=== PATIENT | female | born 1955 | race Caucasian/White ===

== ENCOUNTER → 2022-11-17 07:16 | Outpatient (CLI) | payer BC, SELFPAY | PROVIDERS: PCP Student in an Organized Health Care Education/Training Program; Visit Provider Student in an Organized Health Care Education/Training Program | DX: R68.89 Other general symptoms and signs (principal) | CPT/HCPCS: 87635 ==

== ENCOUNTER 2023-10-02 10:24 | Outpatient (CLI) | payer BC, SELFPAY ==
[2023-10-02 18:26] LABS: Adenovirus,PCR Not Detected (NotDetected); Bordetella Pertussis Not Detected (NotDetected); Chlamydophila Pneumoniae, PCR Not Detected (NotDetected); Coronavirus 229E Not Detected (NotDetected); Coronavirus NL63 Not Detected (NotDetected); Coronavirus OC43 Not Detected (NotDetected); Coronovirus HKU1,PCR Not Detected (NotDetected); Human Metapneumovirus Not Detected (NotDetected); Influenza A, PCR Not Detected (NotDetected); Influenza AH1, 2009 Not Detected (NotDetected); Influenza AH1, PCR Not Detected (NotDetected); Influenza AH3,PCR Not Detected (NotDetected); Influenza B, PCR Not Detected (NotDetected); Mycoplasma Pneumoniae, PCR Not Detected (NotDetected); Parainfluenza 1, PCR Not Detected (NotDetected); Parainfluenza 2, PCR Not Detected (NotDetected); Parainfluenza 3, PCR Not Detected (NotDetected); Parainfluenza 4, PCR Not Detected (NotDetected); Respiratory Syncytial Virus Not Detected (NotDetected); Rhinovirus/Enterovirus Not Detected (NotDetected)
[2023-10-02 23:00] LABS: Coronavirus 19, PCR Detected (NotDetected)
== END 2023-10-02 23:59 | disposition home or self-care (01) ==
LOC: LAB.DROPOF 10-03 10:25
PROVIDERS: PCP Nurse Practitioner; Visit Provider Nurse Practitioner
DX: J06.9 Acute upper respiratory infection, unspecified (principal)
CPT/HCPCS: 87581; 87632; 87635; 87798

== ENCOUNTER 2024-06-24 19:17 | Outpatient (CLI) | payer MEDICARE, SELFPAY ==
[2024-06-24 19:43] LABS: Basophils # 0.1 K/mm3 (0-0.2); Basophils % 0.9 % (0.1-2.0); Eosinophils # 0.3 Kmm3 (0.0-0.4); Eosinophils % 4.1 % (0.1-12.0); Hemoglobin 13.4 g/dL (12.2-16.2); Lymphocytes # 2.8 K/mm3 (0.7-4.5); Lymphocytes % 42.4 % (10-50); Mean Corpuscular HGB Conc 31.9 g/dL (31.8-35.4); Mean Corpuscular Hemoglobin 30.2 pg (27.0-31.2); Mean Corpuscular Volume 94.8 fl (81-99); Mean Platelet Volume 10.7 fl (7.4-10.4); Monocytes # 0.6 K/mm3 (0.1-1.0); Monocytes % 9.3 % (1.7-9.3); Neutrophils # 2.8 K/mm3 (1.8-7.8); Neutrophils % 43.1 % (37.0-80.0); Nucleated Red Blood Cells # 0 10^3/uL; Nucleated Red Blood Cells % 0 %; Platelet Count 331 K/mm3 (142-424); Red Blood Count 4.43 M/mm3 (4.20-5.40); Red Cell Distribution Width 13.3 % (11.5-17.5); Red Cell Distribution Width-SD 46.8 fL; White Blood Count 6.6 K/mm3 (4.8-10.8)
[2024-06-24 21:19] LABS: Alanine Aminotransferase 24 U/L (12-78); Albumin Level 3.7 g/dl (3.5-5.0); Albumin/Globulin Ratio 1.4 (1.1-1.8); Alkaline Phosphatase 104 U/L (38-126); Aspartate Amino Transferase 28 U/L (14-36); Bilirubin,Total 0.5 mg/dl (0.2-1.3); Blood Urea Nitrogen 16 mg/dl (7-17); Calcium 8.9 mg/dl (8.4-10.2); Carbon Dioxide 27 mmol/L (22.0-30.0); Chloride 110 mmol/L (98-107); Chol/HDL Ratio 3.8 (1-3.5); Cholesterol 232 mg/dl (140-200); Estimated Glomerular Filt Rate 100 ml/min (>60); GFR (African American) 121 ML/MIN (>60); Globulin 2.6 g/dL (1.3-3.2); Glucose 87 mg/dl (74-100); HDL Cholesterol 61 mg/dl (40-60); Sodium 141 mmol/L (136-145); Total Protein,Serum 6.3 g/dl (6.3-8.2); Triglycerides 156 mg/dl (30-150); VLDL Cholesterol 31 mg/dL (0-40)
[2024-06-24 21:31] LABS: Creatinine,Urine Random 112 mg/dL (Not Estab.); Direct LDL Cholesterol 120.09 mg/dL (100-129)
[2024-06-24 21:38] LABS: Microalbumin/Creatinine Ratio 5.8
[2024-06-24 21:51] LABS: Thyroid Stimulating Hormone 3.67 uIU/mL (0.465-4.68)
[2024-06-24 22:11] LABS: Vitamin B12 214 pg/mL (239-931)
[2024-06-24 23:20] LABS: Hemoglobin A1C 5.5 % (4.0-6.0)
== END 2024-06-24 23:59 | disposition home or self-care (01) ==
LOC: LAB 19:18
PROVIDERS: PCP Nurse Practitioner; Visit Provider Nurse Practitioner
DX: E78.5 Hyperlipidemia, unspecified (principal); I10 Essential (primary) hypertension; K21.9 Gastro-esophageal reflux disease without esophagitis; I25.10 Atherosclerotic heart disease of native coronary artery without angina pectoris
CPT/HCPCS: 80053; 80061; 82043; 82570; 82607; 83036; 84443; 85025

== ENCOUNTER 2024-12-22 10:59 | Outpatient (CLI) | payer MEDICARE, SELFPAY ==
--- OUTSIDE RECORDS SUMMARY | 2024-11-04 10:13 | XMS_ITS | Encounter Summary ---
Author Organization [place] [address] Care Team Providers Care Forensic Accountant Name Role Phone Tito Salgado MD Primary Care Provider [phone] Jonathan Koch MD Unavailable [phone] Reason for Visit * Reason Comments Injections Praluent injection t each visit Encounter Details Date Type Department Care Team (Latest Contact Info) Description 11/04/2024 10:13 AM EDT - 11/04/2024 11:59 PM EDT Hospital Encounter [facility] [address] [facility] [address] [place] [id number] Yony Go, ErvinD Pure hypercholesterolemia (Primary Dx) Discharge Disposition: Home or Self Care Social History Tobacco Use Types Packs/Day Years Used Date Smoking Tobacco: Never Smokeless Tobacco: Never Alcohol Use Standard Drinks/Week Comments Not Currently 0 (1 standard drink = 0.6 oz pur e alcohol) Comments No Sex and Gender Information Value Date Recorded Sex Assigned at Not on file Legal Sex Female 5:13 AM EDT Gender Identity Not on file Sexual Orientation Not on file documented as of this encounter Medications at Time of Discharge alirocumab (PRALUENT PEN) 75 mg/mL SubQ Pen Injector Inject 1 mL under the skin every 14 days. 2 mL 3 12/23/2024 8:16 AM EDT 10/15/2024 aspirin 81 mg Oral Tablet, Chewable Take 1 Tab by mouth daily. 10/11/2018 ezetimibe (ZETIA) 10 mg Oral Tablet Take 1 Tablet by mouth daily. 90 Tablet 3 10/07/2024 metoprolol succinate (TOPROL-XL) 50 mg Oral Tablet Sustained Release 24 hr Take 1 Tablet by mouth daily. 90 Tablet 3 10/06/2024 omeprazole (PRILOSEC) 20 mg Oral Capsule, Delayed Release(E.C.) Take 1 Capsule by mouth daily. 90 Capsule 3 10/06/2024 sennosides/docusa te sodium (LAXATIVE PLUS STOOL SOFTENER ORAL) Take by mouth. VITAMIN B-12 1,000 mcg Oral Tablet Take 1,000 mcg by mouth daily. 06/25/2024 documented as of this encounter Discharge Disposition Disposition Code Departure Means Destination Home or Self Care documented in this encounter Progress Notes * Chastity Magana, PharmD - 11/04/2024 10:30 AM EDT [facility] - Initial Assessment (Patient Education) Patient presents to Medication Management Clinic today for injection training with Praluent. Pleasesee [facility] encounter 10/15/2024 encounter for Initial Assessment (clinical). HPI: Patient presents to clinic today for her first Praluent injection. Per patient, her spouse who accompanied her to the visit will be responsible for administering the medication at home. Prior to administration, the pharmacist reviewed the injection technique and addressed any questions. The patient's spouse initiated the injection but required some assistance from the pharmacist to complete the process. He confirmed that he feels comfortable administering future doses. Both the patient and her spouse were advised to contact the clinic with any questions regarding theinjection technique or in the event of any adverse drug events. Patient has her dose of Praluent with her in clinic today. Medication delivered by [facility]. Lot: [id number] Exp: 01/02/2026 Dose: 75 mg SUBQ every 14 days (to begin 11/04/2024) Information reviewed includes: Medication name and dose Mechanism of action Side effects Storage Injection technique Disposal Obtaining refills Patient successfully administered dose of Praluent 75 mg SUBQ into the right abdomen today. No ABRAHAM noted after injection, and patient satisfied with ability to inject next dose at home on 11/18/24. Patient denies further questions at close of visit. Labs ordered today to be obtained prior to next visit: Lipid panel to be ordered and patient to complete prior to next appointment with [facility] in 12 weeks (scheduled for 01/27/25) Next clinical follow-up: 3 month(s) Patient advised to remain on campus for 15 minutes after medication administration. Pharmacist provided remaining dose (1 injection) to patient prior to leaving. Verified name and . Thank you, Chastity Magana PharmD PGY2 Axle Turner Auto Technician Mechanic Cosigned by Yony Go PharmD at 11/04/2024 1:57 PM EDT Associated attestation - Yony Go PharmD - 11/04/2024 1:57 PM EDT [facility] 11/04/2024 1:57 PM I have reviewed and am in agreement with the plan as outlined. [facility] Go PharmD, [facility] Pharmacist documented in this encounter Miscellaneous Notes * Patient Instructions - Yony Go PharmD - 11/04/2024 10:30 AM EDT You may receive a survey via phone, mail, or email regarding your visit today. Your feedback is important to us. We ask that you please take a few minutes to fill out the survey. You were assisted byJustin (Pharmacists). Thank you for choosing [facility]. We sincerely thank you for the opportunity to be part of your care. documented in this encounter Plan of Treatment Upcoming Encounters Date Type Department Care Team (Late st Contact Info) Description 01/27/2025 11:30 [place] [address] Abbie Calderón PharmD Scheduled Orders Name Type Priority Associated Diagnoses Orde r Schedule LIPID SCREEN Lab Routine Pure hypercholesterolemia Expected: 12/30/2024 (Approximate), Expires: 11/04/2025 documented as of this encounter Visit Diagnoses Diagnosis Pure hypercholesterolemia- Primary documented in this encounter Care Teams Forensic Accountant Relationship Specialty Start Date End Date Tito Salgado MD [address] [facility] [address] [place] [address] PCP - General Family Medicine 10/18/18 Jonathan Koch MD 1 [facility] [address] [facility], [place] [id number] Internal Medicine-Cardiovascular Disease 10/18/18 documented as of this encounter
[2024-12-22 17:16] LABS: Alanine Aminotransferase 29 U/L (12-78); Albumin Level 4.0 g/dl (3.5-5.0); Albumin/Globulin Ratio 1.7 (1.1-1.8); Alkaline Phosphatase 100 U/L (38-126); Anion Gap 12.5 mEq/L (5-15); Aspartate Amino Transferase 29 U/L (14-36); Bilirubin,Total 0.5 mg/dl (0.2-1.3); Blood Urea Nitrogen 15 mg/dl (7-17); Calcium 9.4 mg/dl (8.4-10.2); Carbon Dioxide 28 mmol/L (22.0-30.0); Chloride 104 mmol/L (98-107); Cholesterol 188 mg/dl (140-200); Creatinine,Serum 0.70 mg/dl (0.52-1.04); Estimated Glomerular Filt Rate 83 ml/min (>60); GFR (African American) 101 ML/MIN (>60); Globulin 2.3 g/dL (1.3-3.2); Glucose 83 mg/dl (74-100); HDL Cholesterol 53 mg/dl (40-60); Potassium 4.5 mmoL/L (3.5-5.1); Sodium 140 mmol/L (136-145); Total Protein,Serum 6.3 g/dl (6.3-8.2); Triglycerides 292 mg/dl (30-150)
[2024-12-22 17:56] LABS: Hepatitis C Ab Qual. W/ RFX NEGATIVE (Negative)
[2024-12-22 18:04] LABS: Vitamin B12 820 pg/mL (239-931)
[2024-12-23 06:10] LABS: Hepatitis B Surface Antigen Negative (Negative)
--- OUTSIDE RECORDS SUMMARY | 2024-12-24 11:32 | XMS_ITS | Encounter Summary ---
Author Organization [place] [address] Care Team Providers Care Carroting Machine Operator Name Role Phone Tito Salgado MD Primary Care Provider [phone] Jonatahn Koch MD Unavailable [phone] Encounter Details Date Type Department Care Team (Late st Contact Info) Description 10/21/2024 Results Follow-Up [facility] [address] [place] [address] Jonathan oKch MD [address] [place] [address] RIGHT UPPER QUADRANT Social History Tobacco Use [...] 01/27/2025 11:30 AM EST Appointment [facility] [address] [facility] [address] [place] [phone] Abbie Calderón, PharmD documented as of this encounter Visit Diagnoses Not on filedocumented in this encounter Care Teams Carroting Machine Operator Relationship Specialty Start Date End Date Tito Salgado MD [address] [facility] [address] [place] [address] PCP - General Family Medicine 10/18/18 Jonathan Koch MD [address] [facility] [place] [address] Internal Medicine-Cardiovascular Disease 10/18/18 documented as of this encounter
--- OUTSIDE RECORDS SUMMARY | 2024-12-24 11:32 | XMS_ITS | Encounter Summary ---
Author Organization [employer] [place] [address] Care Team Providers Care Fitness Trainer Name Role Phone Tito Salgado MD Primary Care Provider [phone] Jonathan Koch MD Unavailable Reason for Referral * Ultrasound (Routine) - Pending Review Specialty Diagnoses / Procedures Referred By Contac t Referred To Contact Radiology Diagnoses Elevated LFTs Procedures US RIGHT UPPER QUADRANT Jonathan Koch MD [address] [place] [address] [place] [address] Phone: tel: fax: Referral ID Status Reason Start Date Expiration Date V isits Requested Visits Authorized [id number] Pending Review 10/17/2024 10/17/2025 1 1 Encounter Details Date Type Department Care Team (Latest Contact Info) Description 10/17/2024 Results Follow-Up [facility] [place] [address] [place] [address] Jonathan Koch MD [address] [place] [address] [place] [address] CBC WITH DIFF, COMPREHENSIVE METABOLIC PANEL, LIPID [...] Description 01/27/2025 11:30 AM [place] [address] Abbie Calderón, PharmD documented as of this [...] HISTORY: R79.89-Other specified abnormal findings of blood [id number]-CM. COMPARISON: None. PROCEDURE COMMENTS: Ultrasound examination of [...] HISTORY: R79.89-Other specified abnormal findings of blood [id number]-CM. COMPARISON: None. PROCEDURE COMMENTS: Ultrasound examination of [...] the ordering clinician. us Jonathan Koch MD [facility] US ORDERABLES Final Resu lt documented in this encounter Visit Diagnoses Diagnosis Elevated LFTs- Primary Other abnormal blood chemistry Elevated LFTs Other abnormal blood chemistry documented in this encounter Care Teams Fitness Trainer Relationship Specialty Start Date End Date Tito Salgado MD [facility] [place] [address] [place] [id number] PCP - General Family Medicine 10/18/18 Jonathan Koch MD [address] [place] [address] [address] [place], [place] [id number] Internal Medicine-Cardiovascular Disease 10/18/18 documented as of this encounter
--- OUTSIDE RECORDS SUMMARY | 2024-12-24 11:32 | XMS_ITS | Encounter Summary ---
Author Organization [place] [address] Care Team Providers Care Yard Pipe Grader Name Role Phone Tito Salgado MD Primary Care Provider [phone] Jonathan Koch MD Unavailable [phone] Reason for Visit * Reason Comments Pharmacy Hyperlipidemia Management Pralu ent Encounter Details Date Type Department Care Team (Latest Contact Info) Description 11/25/2024 Specialty Pharmacy [facility] [address] [place], [place] [id number] Pearl Perry CPhT Pharmacy Hyperlipidemia Management (Praluent) [...] Harry PharmD - 11/25/2024 10:26 AM EDT [facility] - Care Plan and Refill Review Refill questions and refill history verified. Last assessment 10/15/2024. No reassessment needed at this time. Devante Harry, PharmLe Specialty Pharmacist documented in this encounter Plan of Treatment Upcoming Encounters Date Type Department Care Team (Late st Contact Info) Description 01/27/2025 11:30 AM EST Appointment [facility] [address] [facility] [address] [place] [address] Abbie Calderón, PharmD documented as of this encounter Visit Diagnoses Not on filedocumented in this encounter Care Teams Yard Pipe Grader Relationship Specialty Start Date End Date Tito Salgado MD [facility] [address] [place] [address] PCP - General Family Medicine 10/18/18 Jonathan Koch MD [address] [place] [address] [place] [address] Internal Medicine-Cardiovascular Disease 10/18/18 documented as of this encounter
--- OUTSIDE RECORDS SUMMARY | 2024-12-24 11:32 | XMS_ITS | Encounter Summary ---
Author Organization [place] [address] Care Team Providers Care Founding Partner Name Role Phone Tito Salgado MD Primary Care Provider [phone] Jonathan Koch MD Unavailable [phone] Reason for Visit * Reason Comments Pharmacy Hyperlipidemia Management Pralu ent Encounter Details Date Type Department Care Team (Latest Contact Info) Description 10/15/2024 Specialty Pharmacy [facility] [address] [place], [place] [id number] Abby Gasca RPH Pharmacy Hyperlipidemia Management (Praluent) [...] Gasca RPH - 10/15/2024 3:54 PM EDT [facility] Prescription received for Praluent (75mg). Prescription requires prior authorization. Please refer to [facility] encounter for clinical review. Patient will need a teach visit if able to fill here. * Kay Myrick CPhT - 10/15/2024 3:54 PM EDT [facility] Prior Authorization Submitted PA for Praluent to [employer] insurance via covermymeds (Phillips [id number]). Will follow up on 10/20. * Kiera Gilman CPhT - 10/15/2024 3:54 PM EDT [facility] Prior Authorization Determination Received notice of PA approval for Praluent. PA approved from 10/16/24 to 03/04/25. Patient is able to fill at [facility]. Copay is $393.26. Patient has a referral to [facility] and needs teach visit. Will route to [facility] to schedule. Patient has Medicare coverage and copay is over $100, patient will be enrolled in funding and follow up set for next business day. Medication is able to be delivered via [employer]. * Mabel Fraser CPhT - 10/15/2024 3:54 PM EDT [facility] Funding Support Management Medication name: Praluent [...] patients legal name, name that is on chair car driver's license, ID etc same as in [facility]? Yes Is the patient Active , Retired [...] determination? Yes Diagnosis: Hypercholesterolemia (E78.00) Please use [employer] for application * Mabel Fraser CPhT - 10/15/2024 3:54 PM EDT [facility] Funding Support Management Patient approved for cheryl from [employer]. Cheryl Diagnosis Hypercholesterolemia Cheryl ID: [id number] Eligible funds: $2,500 RXBIN: [id number]: [id number]: [id number] RXID: [id number] EFFECTIVE DATES: 09/22/24 to 09/21/25 Information has been added to [place]. Spoke with patient. Please inform patients that [...] teach visit for Praluent. Patient fills at: [facility] Patient scheduled for 11/04/24 at 10:30am Did patient request appointment to be on a later date? No Fabiola Sanchez CPhT * Bianca Nuñez CPhT - 10/15/2024 3:54 PM EDT [facility] 10/28/2024 9:18 AM Processed Praluent in [place] for [facility] to metrology engineer (via [employer]) to [facility] location. Patient aware of copay? Yes CC info needed? No Setting [facility] refill date for 11/25/24 Bianca Nuñez CPhT documented in this encounter Plan of Treatment Upcoming Encounters Date Type Department Care Team (Late st Contact Info) Description 01/27/2025 11:30 AM EST Appointment [facility] [address] [place] [address] Abbie Calderón, PharmD documented as of this encounter Visit Diagnoses Not on filedocumented in this encounter Care Teams Founding Partner Relationship Specialty Start Date End Date Tito Salgado MD [address] [facility] [address] [place] [address] PCP - General Family Medicine 10/18/18 Jonathan Koch MD [address] [place] [address] DR [address] [facility] [place] [address] Internal Medicine-Cardiovascular Disease 10/18/18 documented as of this encounter
--- OUTSIDE RECORDS SUMMARY | 2024-12-24 11:33 | XMS_ITS | Clinical Summary ---
Author Organization [facility] Address [address] [place], [place] [address] Phone Care Team Providers Care Freight Inspector Name Role Phone Tito Salgado MD Primary Care Provider [phone] Jonathan Koch MD Unavailable [phone] Allergies Active Allergy Reactions Criticality Noted Date [...] Specialty Pharmacy [facility] [address] [phone] Pearl Robbins CPhT Pharmacy Hyperlipidemia Management (Praluent) 11/04/2024 10:13 AM EDT - 11/04/2024 11:59 PM EDT [place] [address] Yony Go PharmD Pure hypercholesterolemia (Primary Dx) Discharge Disposition: Home or Self Care 10/21/2024 Results Follow-Up [facility] [address] [address] Jonathan Koch MD RIGHT UPPER QUADRANT 10/20/2024 7:00 AM EDT - 10/20/2024 11:59 PM EDT Hospital Encounter [facility] [address] [facility] [place] [address] Jonathan Koch MD Elevated LFTs Discharge Disposition: Home or Self Care 10/17/2024 Results [place] [address] Jonathan Koch MD CBC WITH DIFF, COMPREHENSIVE METABOLIC PANEL, LIPID SCREEN, Additional followed-up results: 3 10/16/2024 7:33 AM EDT - 10/16/2024 11:59 PM EDT Hospital Encounter [facility] [address] [phone] Pure hypercholesterolemia; watermelon harvesting supervisor use of drug; ASHD (arteriosclerotic heart disease); Essential hypertension; S/P CABG x 3; Statin intolerance; Abnormal finding of blood chemistry, unspecified Discharge Disposition: Home or Self Care 10/15/2024 9:58 AM EDT - 10/15/2024 11:59 PM EDT Hospital Encounter [facility] [address] [address] Saira Goodrich [facility] Pure hypercholesterolemia (Primary Dx); S/P CABG x 3 Discharge Disposition: Home or Self Care 10/15/2024 Specialty Pharmacy [facility] [address] [place] [address] Abby Gasca [facility] Pharmacy Hyperlipidemia Management (Praluent) 10/08/2024 Specialty Pharmacy [facility] [address] [facility] [address] [place] [address] Malissa Bernabe, ErvinD Pharmacy Hyperlipidemia Management 10/06/2024 10:30 AM EDT Office Visit [facility] [place] [address] [place] [address] Jonathan Koch MD ASHD (arteriosclerotic heart disease) (Primary Dx); Essential hypertension; S/P CABG x 3; Pure hypercholesterolemia; Statin intolerance; Abnormal finding of blood chemistry, unspecified 10/06/2024 Telephone [facility] [place] [address] [place] [address] Jonathan Koch MD Medication Problem from Last 3 Months Immunizations Immunization Administration Dates Next Due Tdap 02/01/2016 Surgical History Surgery Date Site/Laterality Comments CORONARY PERCUTANEOUS INTERVENTION(PCI) 10/07/2018 N/A Surgeon: Jonathan Koch MD; Location: [facility]; Service: Cardiac CORONARY ARTERY BYPASS GRAFT [...] 01/27/2025 11:30 AM [place] [address] Abbie Calderón, PharmD Health Maintenance Due Date [...] 10/16/2024 7:53 AM EDT Pure hypercholesterolemi a watermelon harvesting supervisor use of drug THYROID STIMULATING HORMONE Routine [...] HISTORY: R79.89-Other specified abnormal findings of blood [id number]. COMPARISON: None. PROCEDURE COMMENTS: Ultrasound examination of [...] HISTORY: R79.89-Other specified abnormal findings of blood [id number]. COMPARISON: None. PROCEDURE COMMENTS: Ultrasound examination of [...] - 0.3 mg/dL 10/16/2024 5:06 PM EDT [facility] Blood VENOUS BLOOD / Unknown Venipuncture / Unknown 10/16/2024 7:53 AM EDT 10/16/2024 7:53 AM EDT us Jonathan Koch MD CHEMISTRY ORDERABLES Final R esult [facility] [address] [facility] [address], [place] [address] * CBC WITH DIFF (10/16/2024 7:53 AM [...] 3:28 PM EDT [facility] Cidra Percent 10.0 % 10/16/2024 3:28 PM EDT [facility] Eos Percent 6.5 % 10/16/2024 3:28 PM EDT [facility] Baso Percent 1.0 % 10/16/2024 3:28 PM EDT [facility], [facility] Neut # 2.4 1.6 - 6.1 x10(3)/[facility] 10/16/2024 3:28 PM EDT [facility] Comment:Neutrophils equals s egs plus bands IMMGRAN# 0.0 0.0 - 0.1 x10(3)/[facility] 10/16/2024 3:28 PM EDT [facility] Comment:Automated count of m etamyelocytes, myelocytes and promyelocytes. An absolute IG <0.1 is reported as 0.0. Lymph # 2.4 1.2 - 3.9 x10(3)/[facility] 10/16/2024 3:28 PM EDT [facility] Cidra # 0.6 0.3 - 0.9 x10(3)/[facility] 10/16/2024 3:28 PM EDT [facility] Eos# 0.4 0.0 - 0.5 x10(3)/[facility] 10/16/2024 3:28 PM EDT [facility] Baso # 0.1 0.0 - 0.1 x10(3)/[facility] 10/16/2024 3:28 PM EDT [facility] Blood VENOUS BLOOD / Unknown Venipuncture / Unknown 10/16/2024 7:53 AM EDT 10/16/2024 7:53 AM EDT us Jonathan Koch MD HEMATOLOGY ORDERABLES Final Result [facility] [address] [facility] , [place] [address] * THYROID STIMULATING HORMONE (10/16/2024 7:53 AM EDT) [facility] Signature TSH 2.360 0.270 - 4.200 mcIU/mL 10/16/2024 5:06 PM EDT [facility] Blood VENOUS BLOOD / Unknown Venipuncture / Unknown 10/16/2024 7:53 AM EDT 10/16/2024 7:53 AM EDT Narrative [facility] - 10/16/2024 5:06 PM EDT Ingestion of mark doses of biotin (>5 mg/day) taken within 8 hours of drawing blood sample can interfere with this immunoassay test. Jonathan Koch MD CHEMISTRY ORDERABLES Final R [facility] Performing Organization Address [facility] Co de Phone Number [facility] [address] , [place] [address] * (ABNORMAL) HEMOGLOBIN A1C (10/16/2024 7:53 AM EDT) Hgb A1C 5.8(H) 4.2 - 5.6 % 10/16/2024 3:48 PM EDT [facility] Est. Avg Glucose 120 mg/dL 10/16/2024 3:48 PM EDT [facility] Blood VENOUS BLOOD / Unknown Venipuncture / Unknown 10/16/2024 7:53 AM EDT 10/16/2024 7:53 AM EDT [facility] - 10/16/2024 3:48 PM EDT REFERENCE RANGE: Normal: 4.0-5.6% Pre-diabetes: 5.7-6.4% Provisional diagnosis of diabetes: >6.4% Hgb F>10% and anything which shortens red cell survival, such as hemolytic anemia, or unstable hemoglobin variants such as HbSS, HbSC, or HbCC, will lower the HbA1c value associated with a given level of glycemic control. Jonathan Koch MD CHEMISTRY ORDERABLES Final R ult Performing Organization Address [facility] Co de Phone Number [facility] [employer] [address] , [place] [address] * (ABNORMAL) LIPID SCREEN (10/16/2024 7:53 AM EDT) Cholesterol 222(H) <200 mg/dL 10/16/2024 5:06 PM EDT [employer] [facility] Comment: < 200 Desirable 200 - 239 Borderline High >= 240 High Triglyceride 165(H) <150 mg/dL 10/16/2024 5:06 PM EDT [facility] Comment: < 150 Normal 150 - 199 Borderline High 200 - 499 High >= 500 Very High HDL 64 >=40 mg/dL 10/16/2024 5:06 PM EDT [facility], [facility] Comment: > 60 Optimal 40 - 60 Acceptable < 40 Low LDL Calculated 129(H) <100 mg/dL 10/16/2024 5:06 PM EDT [facility], [facility] Comment: < 100 Optimal 100 - 129 Near or above optimal 130 - 159 Borderline High 160 - 189 High >= 190 Very High The National Institutes of Health (NIH) equation is used for all lipid panels that report calculated LDL (LDL-C). Non-HDL-C Calculated 158(H) <=129 mg/dL 10/16/2024 5:06 PM EDT [facility], [facility] Comment: <130 Desirable 130-159 Above Desirable 160-189 Borderline High 190-219 High >= 220 Very High Fasting Specimen? Yes None 025 5:06 PM EDT [facility], [facility] Blood VENOUS BLOOD / Unknown Venipuncture / Unknown 10/16/2024 7:53 AM EDT 10/16/2024 7:53 AM EDT us Jonathan Koch MD CHEMISTRY ORDERABLES Final R esult [facility] [address] [facility] , [address] [place] [id number] * (ABNORMAL) COMPREHENSIVE METABOLIC PANEL (10/16/2024 7:53 AM EDT) Sodium 141 136 - 145 mmol/L 10/16/2024 5:06 PM EDT [facility] Potassium 4.3 3.5 - 5.0 mmol/L 10/16/2024 5:06 PM EDT [facility] Chloride 105 98 - 107 mmol/L 10/16/2024 5:06 PM EDT [facility] Total CO2 26 22 - 29 mmol/L 10/16/2024 5:06 PM EDT [facility] Anion Gap 10 7 - 16 mmol/L 10/16/2024 5:06 PM EDT [facility] Calcium 9.6 8.8 - 10.4 mg/dL 10/16/2024 5:06 PM EDT [facility] Glucose Lvl 85 70 - 99 mg/dL 10/16/2024 5:06 PM EDT [facility] BUN 15 8 - 23 mg/dL 10/16/2024 5:06 PM EDT [facility] Creatinine 0.66 0.51 - 1.30 mg/dL 10/16/2024 5:06 PM EDT [facility] Albumin 4.4 3.2 - 4.6 gm/dL 10/16/2024 5:06 PM EDT [facility] Total Protein 6.9 6.4 - 8.3 gm/dL 10/16/2024 5:06 PM EDT [facility] Bili Total 0.4 0.2 - 1.3 mg/dL 10/16/2024 5:06 PM EDT [facility] ALT 46(H) <=41 U/L 10/16/2024 5:06 PM EDT [facility] AST 42(H) <=40 U/L 10/16/2024 5:06 PM EDT [facility] Alk Phos 124(H) 36 - 123 U/L 10/16/2024 5:06 PM EDT [facility] eGFR (CKD-EPIcr 2020) 96 >=60 mL/min/1.7 3 m2 10/16/2024 5:06 PM EDT [facility] Comment:Estimated GFR was ca lculated using the CKD-EPIcr (2020) equation refit without race. The equation is recommended by the National Kidney Foundation - [place] [employer] of Nephrology Task Force. Blood VENOUS BLOOD / Unknown Venipuncture / Unknown 10/16/2024 7:53 AM EDT 10/16/2024 7:53 AM EDT us Jonathan Koch MD CHEMISTRY ORDERABLES Final R esult [facility], [facility] [address] [facility] [address] [place] [address] from Last 3 Months Insurance [facility] [employer] H[employer]-POS Member Subscriber Plan / Payer (Ef fective 2024-Present) Name:Savanah Amaya Relation to Subscriber:Self Name:Savanah Amaya Payer ID:[id number] (NAIC) Group ID:Not on file Type:Not on file Address: [address] [id number] [facility] [employer] H[employer]-POS Advance Directives For more information, please contact: [phone] * Full Code (Latest Code Status on File) Date Activated Date Inactivated Comments 10/07/2018 1:31 PM 10/12/2018 3:49 PM Care Teams Freight Inspector Relationship Specialty Start Date End Date Tito Salgado MD [address] [facility] [address] [place] [address] PCP - General Family Medicine 10/18/18 Jonathan Koch MD [address] [place] [address] [place] [address] Internal Medicine-Cardiovascular Disease 10/18/18
== END 2024-12-22 23:59 ==
LOC: LAB.DROPOF 12-24 11:00
PROVIDERS: PCP Nurse Practitioner; Visit Provider Nurse Practitioner
DX: E78.5 Hyperlipidemia, unspecified (principal); Z11.59 Encounter for screening for other viral diseases; I10 Essential (primary) hypertension
CPT/HCPCS: 80053; 80061; 82607; 86803; 87340; 87389

== ENCOUNTER 2024-12-24 07:42 | Outpatient (CLI) | payer MEDICARE, SELFPAY ==
--- OUTSIDE RECORDS SUMMARY | 2024-11-04 10:13 | XMS_ITS | Encounter Summary ---
Author Organization [place] [address] Care Team Providers Care Broomcorn Sorter Name Role Phone Tito Salgado MD Primary Care Provider [phone] Jonathan Koch MD Unavailable [phone] Reason for Visit * Reason Comments Injections Praluent injection t each visit Encounter Details Date Type Department Care Team (Latest Contact Info) Description 11/04/2024 10:13 AM EDT - 11/04/2024 11:59 PM EDT Hospital Encounter [facility] 20 [facility] [address] [place] [phone] Yony Go, ErvinD Pure hypercholesterolemia (Primary Dx) [...] today for injection training with Praluent. Pleasesee [facility] encounter 10/15/2024 encounter for Initial [...] her in clinic today. Medication delivered by [facility]. Lot: [id number] Exp: 01/02/2026 Dose: 75 mg SUBQ every [...] to complete prior to next appointment with [facility] in 12 weeks (scheduled for 01/27/25) Next clinical follow-up: 3 month(s) Patient advised to remain on campus for 15 minutes after medication administration. Pharmacist provided remaining dose (1 injection) to patient prior to leaving. Verified name and . Thank you, Chastity Magana PharmD PGY2 Road Crossing Guard Procurement Intern Cosigned by Yony Go PharmD at 11/04/2024 1:57 PM EDT Associated attestation - Yony Go PharmD - 11/04/2024 1:57 PM EDT Hyperlipidemia [facility] 11/04/2024 1:57 PM I have reviewed and am in agreement with the plan as outlined. Yony Go PharmD, [facility] Clinical Pharmacist documented in this encounter [...] assisted byJustin (Pharmacists). Thank you for choosing [facility] Med[facility] Management [facility]. We sincerely thank you for the opportunity to be part of your care. documented in this encounter Plan of Treatment Upcoming Encounters Date Type Department Care Team (Late st Contact Info) Description 01/27/2025 11:30 [place] [address] Abbie Calderón PharmD Scheduled Orders Name Type Priority Associated Diagnoses Orde r Schedule LIPID SCREEN Lab Routine Pure hypercholesterolemia Expected: 12/30/2024 (Approximate), Expires: 11/04/2025 documented as of this encounter Visit Diagnoses Diagnosis Pure hypercholesterolemia- Primary documented in this encounter Care Teams Broomcorn Sorter Relationship Specialty Start Date End Date Tito Salgado MD [address] [facility] [address] [place] [address] PCP - General Family Medicine 10/18/18 Jonathan Koch MD [address] [facility] [address] [facility], [place] [id number] Internal Medicine-Cardiovascular Disease 10/18/18 documented as of this encounter
--- OUTSIDE RECORDS SUMMARY | 2024-12-24 07:45 | XMS_ITS | Encounter Summary ---
Author Organization [place] [address] Care Team Providers Care Social Media Campaign Manager Name Role Phone Tito Salgado MD Primary Care Provider [phone] Jonathan Koch MD Unavailable [phone] Reason for Referral * Ultrasound (Routine) - Pending Review Specialty Diagnoses / Procedures Referred By Contac t Referred To Contact Radiology Diagnoses Elevated LFTs Procedures US RIGHT UPPER QUADRANT Jonathan Koch MD [address] [place] [address] [place] [address] Phone: tel: fax: Referral ID Status Reason Start Date Expiration Date V isits Requested Visits Authorized [id number] Pending Review 10/17/2024 10/17/2025 1 1 Encounter Details Date Type Department Care Team (Latest Contact Info) Description 10/17/2024 Results Follow-Up [facility] [address] [place] [address] Jonathan Koch MD [address] [place] [address] [place] [address] CBC WITH DIFF, COMPREHENSIVE METABOLIC PANEL, LIPID SCREEN, Additional followed-up results: 3 Social History Tobacco Use Types Packs/Day Years [...] on file documented as of this encounter Plan of Treatment Upcoming Encounters Date Type Department Care Team (Late st Contact Info) Description 01/27/2025 11:30 [place] [address] Abbie Calderón, PharmD documented as of this encounter Results * US RIGHT UPPER QUADRANT (10/20/2024 7:30 AM EDT) Anatomical Region Laterality Modality Abdomen Ultrasound 10/20/2024 7:30 AM EDT Impressions 10/20/2024 8:06 AM EDT Unremarkable right upper quadrant ultrasound. - Note: Radiology results need to be interpreted within a comprehensive clinical context. If you have questions about the radiology report, please contact the office of the ordering clinician. Narrative 10/20/2024 8:06 AM EDT US RIGHT UPPER QUADRANT, 10/20/2024 7:30 AM CLINICAL HISTORY: R79.89-Other specified abnormal findings of blood [id number]. COMPARISON: None. PROCEDURE COMMENTS: Ultrasound examination of the right upper quadrant performed by the technologist. Sent to PACS along with tech notes for radiologist review. FINDINGS: Gallbladder: Normal. Issa's sign: Negative. Liver: Normal in size and echotexture. Scattered tiny calcified granulomas. No focal lesion. Common bile duct: Measures 4 mm. (Normal is 6mm or less. If there has been cholecystectomy, normal is 10mm or less.) Pancreas: Visualized portions are normal. Other: Right kidney non-hydronephrotic. Procedure Note Dalton Avila MD - 10/20/2024 US RIGHT UPPER QUADRANT, 10/20/2024 7:30 AM CLINICAL HISTORY: R79.89-Other specified abnormal findings of blood [id number]. COMPARISON: None. PROCEDURE COMMENTS: Ultrasound examination of the right upper quadrantperformed by the technologist. Sent to PACS along with tech notes for radiologistreview. FINDINGS: Gallbladder: Normal. Issa's sign: Negative. Liver: Normal in size and echotexture. Scattered tiny calcifiedgranulomas. No focal lesion. Common bile duct: Measures 4 mm. (Normal is 6mm or less. If there hasbeen cholecystectomy, normal is 10mm or less.) Pancreas: Visualized portions are normal. Other: Right kidney non-hydronephrotic. IMPRESSION: Unremarkable right upper quadrant ultrasound. - Note: Radiology results need to be interpreted within a comprehensiveclinical context. If you have questions about the radiology report, please contactthe office of the ordering clinician. us Jonathan Koch MD [facility] US ORDERABLES Final Resu lt documented in this encounter Visit Diagnoses Diagnosis Elevated LFTs- Primary Other abnormal blood chemistry Elevated LFTs Other abnormal blood chemistry documented in this encounter Care Teams Social Media Campaign Manager Relationship Specialty Start Date End Date Tito Salgado MD [facility] [place] [address] [place] [id number] PCP - General Family Medicine 10/18/18 Jonathan Koch MD [address] [place] [address] [address] [place], [place] [id number] Internal Medicine-Cardiovascular Disease 10/18/18 documented as of this encounter
--- OUTSIDE RECORDS SUMMARY | 2024-12-24 07:45 | XMS_ITS | Encounter Summary ---
Author Organization [place] [address] Care Team Providers Care Software Engineer Advisor Name Role Phone Tito Salgado MD Primary Care Provider [phone] Jonathan Koch MD Unavailable [phone] Encounter Details Date Type Department Care Team (Late st Contact Info) Description 10/21/2024 Results Follow-Up [facility] [address] [place] [address] Jonathan Koch MD [address] [place] [address] RIGHT UPPER QUADRANT Social History Tobacco Use Types Packs/Day Years [...] Description 01/27/2025 11:30 AM EST Appointment [facility] 20 [facility] [address] [place] [phone] Abbie Calderón, PharmD documented as of this encounter Visit Diagnoses Not on filedocumented in this encounter Care Teams Software Engineer Advisor Relationship Specialty Start Date End Date Tito Salgado MD [address] [facility] [address] [place] [address] PCP - General Family Medicine 10/18/18 Jonathan Koch MD [address] [facility] [place] [address] Internal Medicine-Cardiovascular Disease 10/18/18 documented as of this encounter
--- OUTSIDE RECORDS SUMMARY | 2024-12-24 07:45 | XMS_ITS | Encounter Summary ---
Author Organization [place] [address] Care Team Providers Care Mixing And Dispensing Supervisor Name Role Phone Tito Salgado MD Primary Care Provider [phone] Jonathan Koch MD Unavailable [phone] Reason for Visit * Reason Comments Pharmacy Hyperlipidemia Management Pralu ent Encounter Details Date Type Department Care Team (Latest Contact Info) Description 11/25/2024 Specialty Pharmacy [facility] [address] [place], [place] [phone] Pearl Perry CPhT Pharmacy Hyperlipidemia Management (Praluent) Social History Tobacco Use Types Packs/Day Years [...] on file documented as of this encounter Progress Notes * Pearl Perry CPhT - 11/25/2024 10:26 AM EDT Specialty Pharmacy Refill Coordination Note Contacted Savanah Amaya today regarding refills of Praluent. Medication to be delivered by [facility] on 12/01. Copay amount: $0 Spoke with patient. Patient informed of copay. * Devante Harry PharmD - 11/25/2024 10:26 AM EDT [facility] - Care Plan and Refill Review Refill questions and refill history verified. Last assessment 10/15/2024. No reassessment needed at this time. Devante Harry, PharmLe Specialty Pharmacist documented in this encounter Plan of Treatment Upcoming Encounters Date Type Department Care Team (Late st Contact Info) Description 01/27/2025 11:30 AM EST Appointment [facility] [address] [facility] [address] [place] [address] Abbie Calderón, PharmD documented as of this encounter Visit Diagnoses Not on filedocumented in this encounter Care Teams Mixing And Dispensing Supervisor Relationship Specialty Start Date End Date Tito Salgado MD [facility]0 [facility] [address] [place] [address] PCP - General Family Medicine 10/18/18 Jonathan Koch MD [address] [place] [address] [place] [address] Internal Medicine-Cardiovascular Disease 10/18/18 documented as of this encounter
--- OUTSIDE RECORDS SUMMARY | 2024-12-24 07:45 | XMS_ITS | Encounter Summary ---
Author [place] [address] Care Team Providers Care Assistant Child Care Teacher Name Role Phone Tito Salgado MD Primary Care Provider [phone] Jonathan Koch MD Unavailable [phone] Reason for Visit * Reason Comments Pharmacy Hyperlipidemia Management Pralu ent Encounter Details Date Type Department Care Team (Latest Contact Info) Description 10/15/2024 Specialty Pharmacy [facility] [address] [place] [address] [place], [place] [id number] Abby Gasca RPH Pharmacy Hyperlipidemia Management (Praluent) Social History Tobacco [...] as of this encounter Progress Notes * Abby Gasca RPH - 10/15/2024 3:54 PM EDT [facility] Prescription received for Praluent (75mg). Prescription requires prior authorization. Please refer to [facility] encounter for clinical review. Patient will need a teach visit if able to fill here. * Kay Myrick CPhT - 10/15/2024 3:54 PM EDT [facility] Prior Authorization Submitted PA for Praluent to [employer] insurance via covermymeds ([employer] [id number]). Will follow up on 10/20. * Kiera Gilman CPhT - 10/15/2024 3:54 PM EDT [facility] Prior Authorization Determination Received notice of PA approval for Praluent. PA approved from 10/16/24 to 03/04/25. Patient is able to fill at [facility]. Copay is $393.26. Patient has a referral to [facility] Management Clinic and needs teach visit. Will route to [facility] to schedule. Patient has Medicare coverage and copay is over $100, patient will be enrolled in funding and follow up set for next business day. Medication is able to be delivered via [facility]. * Mabel Fraser CPhT - 10/15/2024 3:54 PM EDT [facility] Funding Support Management Medication name: Praluent Amount insurance covered: $130.41 Copay: $393.26 If patient expresses cost unaffordable, continue with screening: Spoke with patient. Patient insurance? Medicare (please make sure patient is aware of Medicare Prescription Payment Plan and $2000 OOP Maximum and that this is not an option) Patient eligible for Medicare Prescription Payment Plan and attests that monthly payment is unaffordable? Yes Is patients legal name, name that is on jeep driver's license, ID etc same as in [place] [facility]? Yes Is the patient Active , Retired , or receives VA benefits? No. Household size: 2 (amount of persons under 18: 0) Adjusted gross income: $45,600 per year. (This is for all adults with an income. Must be exact.) Proof of income: Patient receives social security benefits and Spouse receives social security benefits How would patient like to receive the application for signature? via mail Do we have copies of all pharmacy insurance cards? Yes Do we have a copy of Prior Auth determination? Yes Diagnosis: Hypercholesterolemia (E78.00) Please use [employer] for application * Mabel Fraser CPhT - 10/15/2024 3:54 PM EDT [facility] Funding Support Management Patient approved for cheryl from [employer]. Cheryl Diagnosis Hypercholesterolemia Cheryl ID: [id number] Eligible funds: $2,500 RXBIN: [id number] RXPCN: [id number]: [id number] RXID: [id number] EFFECTIVE DATES: 09/22/24 to 09/21/25 Information has been added to [employer]. Spoke with patient. Please inform patients that this cheryl will use insurance. Patient does need a teach visit. Please explain to patients they may get a letter from the cheryl foundation explaining how the grantworks. Please explain they do not need to do anything as it's just an explanation of benefits. If they receive a letter that states they need to provide any information they will need to call the program for clarification since we do not get those letters. * Fabiola Sanchez CPhT - 10/15/2024 3:54 PM EDT [facility] 10/22/2024 10:31 AM Calling patient to schedule initial teach visit for Praluent. Patient fills at: [facility] Patient scheduled for 11/04/24 at 10:30am Did patient request appointment to be on a later date? No Fabiola Sanchez CPhT * Bianca Nuñez CPhT - 10/15/2024 3:54 PM EDT [facility] 10/28/2024 9:18 AM Processed Praluent in [place] for [facility] to bar tacker (via [facility]) to [facility] location. Patient aware of copay? Yes CC info needed? No Setting [facility] refill date for 11/25/24 Bianca Nuñez CPhT documented in this encounter Plan of Treatment Upcoming Encounters Date Type Department Care Team (Late st Contact Info) Description 01/27/2025 11:30 AM EST Appointment ED[facility] MED [address] [place] [address] Abbie Calderón, PharmD documented as of this encounter Visit Diagnoses Not on filedocumented in this encounter Care Teams Assistant Child Care Teacher Relationship Specialty Start Date End Date Tito Salgado MD [address] [facility] [address] [place] [address] PCP - General Family Medicine 10/18/18 Jonathan Koch MD [address] [place] [address] [address] [place] [address] Internal Medicine-Cardiovascular Disease 10/18/18 documented as of this encounter
--- OUTSIDE RECORDS SUMMARY | 2024-12-24 07:45 | XMS_ITS | Clinical Summary ---
Author Organization [facility] Address [address] [facility] [address] [place], [place] [address] Phone Care Team Providers Care Information Writer Name Role Phone Tito Salgado MD Primary Care Provider [phone] Jonathan Koch MD Unavailable [phone] Allergies Active Allergy Reactions Criticality Noted Date Comments Wali Inhibitors Swelling 05/28/2020 Possible eye swelling Medications aspirin 81 mg Oral Tablet, Chewable Take 1 Tab by mouth daily. 9 Active VITAMIN B-12 1,000 mcg Oral Tablet Take 1,000 mcg by mouth daily. 5 Active sennosides/docu sate sodium (LAXATIVE PLUS STOOL SOFTENER ORAL) Take by mouth. Activ e metoprolol succinate (TOPROL-XL) 50 mg Oral Tablet Sustained Release 24 hr Take 1 Tablet by mouth daily. 90 Tablet 3 5 Active omeprazole (PRILOSEC) 20 mg Oral Capsule, Delayed Release(E.C.) Take 1 Capsule by mouth daily. 90 Capsule 3 5 Active ezetimibe (ZETIA) 10 mg Oral Tablet Take 1 Tablet by mouth daily. 90 Tablet 3 5 Active Additional Information Patient not taking.Reason: Unable to tolerate, Reported on 10/15/2024 alirocumab (PRALUENT PEN) 75 mg/mL SubQ Pen Injector Inject 1 mL under the skin every 14 days. 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 ASHD (arteriosclerotic heart disease) Encounters Date Type Department Care Team Description 11/25/2024 Specialty Pharmacy [facility] [address] [id number] Pearl Robbins CPhT Pharmacy Hyperlipidemia Management (Praluent) 11/04/2024 10:13 AM EDT - 11/04/2024 11:59 PM EDT Hospital [place] [address] Yony Go PharmD Pure hypercholesterolemia (Primary Dx) Discharge Disposition: Home or Self Care 10/21/2024 Results Follow-Up [facility] [address] [address] Jonathan Koch MD RIGHT UPPER QUADRANT 10/20/2024 7:00 AM EDT - 10/20/2024 11:59 PM EDT Hospital Encounter [facility] Ultrasound [address] [place] [address] Jonathan Koch MD Elevated LFTs Discharge Disposition: Home or Self Care 10/17/2024 Results [place] [address] Jonathan Koch MD CBC WITH DIFF, COMPREHENSIVE METABOLIC PANEL, LIPID SCREEN, Additional followed-up results: 3 10/16/2024 7:33 AM EDT - 10/16/2024 11:59 PM EDT Hospital Encounter [facility] [address] [id number] Pure hypercholesterolemia; termination clerk use of drug; ASHD (arteriosclerotic heart disease); Essential hypertension; S/P CABG x 3; Statin intolerance; Abnormal finding of blood chemistry, unspecified Discharge Disposition: Home or Self Care 10/15/2024 9:58 AM EDT - 10/15/2024 11:59 PM EDT Hospital Encounter [facility] [address] [address] Saira Goodrich [facility] Pure hypercholesterolemia (Primary Dx); S/P CABG x 3 Discharge Disposition: Home or Self Care 10/15/2024 Specialty Pharmacy [facility] [address] [place] [address] Abby Gasca [facility] Pharmacy Hyperlipidemia Management (Praluent) 10/08/2024 Specialty Pharmacy [facility] [address] [facility] [address] [place] [address] Malissa Bernabe, ErvinD Pharmacy Hyperlipidemia Management 10/06/2024 10:30 AM EDT Office Visit [facility] [address] [place] [address] Jonathan Koch MD ASHD (arteriosclerotic heart disease) (Primary Dx); Essential hypertension; S/P CABG x 3; Pure hypercholesterolemia; Statin intolerance; Abnormal finding of blood chemistry, unspecified 10/06/2024 Telephone [facility] [place] [address] [place] [address] Jonathan Koch MD Medication Problem from Last 3 Months Immunizations Immunization Administration Dates Next Due Tdap 02/01/2016 Surgical History Surgery Date Site/Laterality Comments CORONARY PERCUTANEOUS INTERVENTION(PCI) 10/07/2018 N/A Surgeon: Jonathan Koch MD; Location: [facility]; Service: Cardiac CORONARY ARTERY BYPASS GRAFT 10/07/2018 N/A CORONARY ARTERY BYPASS GRAFT x3 USING ENDOSCOPICALLY HARVESTED RIGHT GREATER SAPHENOUS VEIN X2 AND LEFT INTERNAL MAMMARY ARTERY X1 WITH 3D TRANSESOPHAGEAL ECHOCARDIOGRAM; Surgeon: Devante Jackson MD; Location: [facility] MAIN OR; Service: Open Heart Medical History Medical History Date Comments S/P CABG x 3 10/24/2018 ASHD (arteriosclerotic heart disease) Essential hypertension 05/09/2019 Pure hypercholesterolemia 05/09/2019 Family History Medical History Relation Name Comments Heart Disease Father stroke/heart a ttack Heart Disease Mother stroke/heart a ttack Heart Surgery Sister open heart raine carisa Relation Name Status Comments Father Mother Sister Social History Tobacco Use Types Packs/Day Years Used Date Smoking Tobacco: Never Smokeless Tobacco: Never Tobacco Cessation:Counseling Given: Not Answered Alcohol Use Standard Drinks/Week Comments Not Currently 0 (1 standard drink = 0.6 oz pur e alcohol) Comments No Sex and Gender Information Value Date Recorded Sex Assigned at Not on file Legal Sex Female 5:13 AM EDT Gender Identity Not on file Sexual Orientation Not on file Last Filed Vital Signs Vital Sign Reading Time Taken Comments Blood Pressure 112/84 10/06/2024 10:11 AM EDT Pulse 68 10/06/2024 10:11 AM EDT Temperature 36.4 C (97.5 F) 05/28/2020 8:35 AM EDT Respiratory Rate 18 10/12/2018 9:09 AM EDT Oxygen Saturation 98% 10/24/2018 9:26 AM EDT Inhaled Oxygen Concentration - - Weight 78.4 kg (172 lb 12.8 oz) 025 10:11 AM EDT Height 170.2 cm (5' 7 ) 09/18/2022 8:33 AM EDT Body Mass Index 27.06 09/18/2022 8:33 AM EDT Plan of Treatment Upcoming Encounters Date Type Department Care Team (Late st Contact Info) Description 01/27/2025 11:30 AM EST [place] [address] Abbie Calderón, PharmD Health Maintenance Due Date Last Done Comments Wellness Exam Medicare 01/11/1960 Hepatitis C Screening 1975 Breast Cancer Screening 1997 Cologuard 2002 Colon Cancer Screening 2002 Colonoscopy 2002 FIT 2002 Sigmoidoscopy 2002 Virtual Colonography 2002 Pneumococcal Vaccine 50+ (1 of 1 - PCV) 2007 Zoster (1 of 2) 2007 Bone Density Screening 2022 COVID-19 Vaccine (1 - 2024-2 6 season) 2024 Influenza Vaccine (#1) 2024 DTaP/TDaP/Td (2 - Td or Tdap) 01/31/2026 02/01/2016 Hepatitis B Vaccine Aged Out No longe r eligible based on patient's age to complete this topic Meningococcal B Vaccine Aged Out No l onger eligible based on patient's age to complete this topic Procedures Procedure Name Priority Date/Time Associated Diagnosis Comments US RIGHT UPPER QUADRANT Routine 10/20/2024 7:30 AM EDT Elevated LFTs BILIRUBIN DIRECT Routine 10/16/2024 7:53 AM EDT Pure hypercholesterolemi a termination clerk use of drug THYROID STIMULATING HORMONE Routine 10/16/2024 7:53 AM EDT ASHD (arteriosclerotic heart disease) Essential hypertension S/P CABG x 3 Pure hypercholesterolemi a Statin intolerance HEMOGLOBIN A1C Routine 10/16/2024 7:53 AM EDT ASHD (arteriosclerotic heart disease) Essential hypertension S/P CABG x 3 Pure hypercholesterolemi a Statin intolerance Abnormal finding of blood chemistry, unspecified LIPID SCREEN Routine 10/16/2024 7:53 AM EDT ASHD (arteriosclerotic heart disease) Essential hypertension S/P CABG x 3 Pure hypercholesterolemi a Statin intolerance COMPREHENSIVE METABOLIC PANEL Routine 10/16/2024 7:53 AM EDT ASHD (arteriosclerotic heart disease) Essential hypertension S/P CABG x 3 Pure hypercholesterolemi a Statin intolerance CBC WITH DIFF Routine 10/16/2024 7:53 AM EDT ASHD (arteriosclerotic heart disease) Essential hypertension S/P CABG x 3 Pure hypercholesterolemi a Statin intolerance from Last 3 Months Results * US RIGHT UPPER QUADRANT (10/20/2024 [...] HISTORY: R79.89-Other specified abnormal findings of blood [id number]-CM. COMPARISON: None. PROCEDURE COMMENTS: Ultrasound examination of [...] HISTORY: R79.89-Other specified abnormal findings of blood [id number]-[id number]-40-CM. COMPARISON: None. PROCEDURE COMMENTS: Ultrasound examination of the right upper quadrantperformed by the technologist. Sent to PACS along with tech notes for radiologistreview. FINDINGS: Gallbladder: Normal. Sisa's sign: Negative. Liver: Normal in size and [...] the ordering clinician. us Jonathan Koch MD IMG US ORDERABLES Final Resu lt * BILIRUBIN DIRECT (10/16/2024 7:53 AM EDT) Bili Direct <0.2 0.0 - 0.3 mg/dL 10/16/2024 5:06 PM EDT [facility] Blood VENOUS BLOOD / Unknown Venipuncture / Unknown 10/16/2024 7:53 AM EDT 10/16/2024 7:53 AM EDT us Jonathan Koch MD CHEMISTRY ORDERABLES Final R esult [facility] [address] [facility] [address], [place] [address] * CBC WITH DIFF (10/16/2024 7:53 AM EDT) WBC 5.9 3.7 - 10.3 x10(3)/mcL 10/16/2024 3:28 PM EDT [facility] RBC 4.59 3.90 - 5.20 x10(6)/mcL 10/16/2024 3:28 PM EDT [facility] Hgb 13.6 11.2 - 15.7 g/dL 10/16/2024 3:28 PM EDT [facility] Hct 43.3 34.0 - 45.0 % 10/16/2024 3:28 PM EDT [facility] MCV 94.3 80.0 - 100.0 fL 10/16/2024 3:28 PM EDT [facility] MCH 29.6 26.0 - 34.0 pg 10/16/2024 3:28 PM EDT [facility] MCHC 31.4 30.7 - 35.5 g/dL 10/16/2024 3:28 PM EDT [facility] RDW 13.8 <=14.9 % 10/16/2024 3:28 PM EDT [facility] Platelet 292 155 - 369 x10(3)/mcL 10/16/2024 3:28 PM EDT [facility] MPV 10.8 8.8 - 12.5 fL 10/16/2024 3:28 PM EDT [facility] Neut Percent 41.2 % 10/16/2024 3:28 PM EDT [facility] Comment:Neutrophils equals s egs plus bands Imm Gran% 0.2 % 10/16/2024 3:28 PM EDT [facility] Comment:Automated count of m etamyelocytes, myelocytes and promyelocytes. Lymph Percent 41.1 % 10/16/2024 3:28 PM EDT [facility] Stevens Percent 10.0 % 10/16/2024 3:28 PM EDT [facility] Eos Percent 6.5 % 10/16/2024 3:28 PM EDT [facility] Baso Percent 1.0 % 10/16/2024 3:28 PM EDT [facility], [facility] Neut # 2.4 1.6 - 6.1 x10(3)/[facility] 10/16/2024 3:28 PM EDT [facility] Comment:Neutrophils equals s egs plus bands IMMGRAN# 0.0 0.0 - 0.1 x10(3)/[facility] 10/16/2024 3:28 PM EDT [facility] Comment:Automated count of m etamyelocytes, myelocytes and promyelocytes. An absolute IG <0.1 is reported as 0.0. Lymph # 2.4 1.2 - 3.9 x10(3)/[facility] 10/16/2024 3:28 PM EDT [facility] Stevens # 0.6 0.3 - 0.9 x10(3)/[facility] 10/16/2024 3:28 PM EDT [facility] Eos# 0.4 0.0 - 0.5 x10(3)/[facility] 10/16/2024 3:28 PM EDT [facility] Baso # 0.1 0.0 - 0.1 x10(3)/[facility] 10/16/2024 3:28 PM EDT [facility] Blood VENOUS BLOOD / Unknown Venipuncture / Unknown 10/16/2024 7:53 AM EDT 10/16/2024 7:53 AM EDT us Jonathan Koch MD HEMATOLOGY ORDERABLES Final Result [facility] [address] [facility] , [place] [address] * THYROID STIMULATING HORMONE (10/16/2024 7:53 AM EDT) [facility] Signature TSH 2.360 0.270 - 4.200 mcIU/mL 10/16/2024 5:06 PM EDT [facility] Blood VENOUS BLOOD / Unknown Venipuncture / Unknown 10/16/2024 7:53 AM EDT 10/16/2024 7:53 AM EDT Narrative [facility] - 10/16/2024 5:06 PM EDT Ingestion of mark doses of biotin (>5 mg/day) taken within 8 hours of drawing blood sample can interfere with this immunoassay test. Jonathan Koch MD CHEMISTRY ORDERABLES Final R [facility] Performing Organization Address [facility] Co de Phone Number [facility] [employer] [address] , [place] [address] * (ABNORMAL) HEMOGLOBIN A1C (10/16/2024 7:53 AM EDT) Hgb A1C 5.8(H) 4.2 - 5.6 % 10/16/2024 3:48 PM EDT [facility] [employer] [facility] Est. Avg Glucose 120 mg/dL 10/16/2024 3:48 PM EDT [facility] [employer] [facility] Blood VENOUS BLOOD / Unknown Venipuncture / Unknown 10/16/2024 7:53 AM EDT 10/16/2024 7:53 AM EDT [facility] [employer] [facility] - 10/16/2024 3:48 PM EDT REFERENCE RANGE: Normal: 4.0-5.6% Pre-diabetes: 5.7-6.4% Provisional diagnosis of diabetes: >6.4% Hgb F>10% and anything which shortens red cell survival, such as hemolytic anemia, or unstable hemoglobin variants such as HbSS, HbSC, or HbCC, will lower the HbA1c value associated with a given level of glycemic control. Jonathan Koch MD CHEMISTRY ORDERABLES Final R ult Performing Organization Address [facility] Co de Phone Number [facility] [employer] [address] , [place] [address] * (ABNORMAL) LIPID SCREEN (10/16/2024 7:53 AM EDT) Cholesterol 222(H) <200 mg/dL 10/16/2024 5:06 PM EDT [employer] [facility] Comment: < 200 Desirable 200 - 239 Borderline High >= 240 High Triglyceride 165(H) <150 mg/dL 10/16/2024 5:06 PM EDT [facility] [employer], [facility] Comment: < 150 Normal 150 - 199 Borderline High 200 - 499 High >= 500 Very High HDL 64 >=40 mg/dL 10/16/2024 5:06 PM EDT [facility], [facility] Comment: > 60 Optimal 40 - 60 Acceptable < 40 Low LDL Calculated 129(H) <100 mg/dL 10/16/2024 5:06 PM EDT [facility] [employer], [facility] Comment: < 100 Optimal 100 - 129 Near or above optimal 130 - 159 Borderline High 160 - 189 High >= 190 Very High The National Institutes of Health (NIH) equation is used for all lipid panels that report calculated LDL (LDL-C). Non-HDL-C Calculated 158(H) <=129 mg/dL 10/16/2024 5:06 PM EDT [facility] [employer], [facility] Comment: <130 Desirable 130-159 Above Desirable 160-189 Borderline High 190-219 High >= 220 Very High Fasting Specimen? Yes None 025 5:06 PM EDT [facility] [employer], [facility] Blood VENOUS BLOOD / Unknown Venipuncture / Unknown 10/16/2024 7:53 AM EDT 10/16/2024 7:53 AM EDT us Jonathan Koch MD CHEMISTRY ORDERABLES Final R esult [facility], [facility] [address] [facility] , [address] [place] [id number] * (ABNORMAL) COMPREHENSIVE METABOLIC PANEL (10/16/2024 7:53 AM EDT) Sodium 141 136 - 145 mmol/L 10/16/2024 5:06 PM EDT [facility] Potassium 4.3 3.5 - 5.0 mmol/L 10/16/2024 5:06 PM EDT [facility] Chloride 105 98 - 107 mmol/L 10/16/2024 5:06 PM EDT [facility] Total CO2 26 22 - 29 mmol/L 10/16/2024 5:06 PM EDT [facility] Anion Gap 10 7 - 16 mmol/L 10/16/2024 5:06 PM EDT [facility] Calcium 9.6 8.8 - 10.4 mg/dL 10/16/2024 5:06 PM EDT [facility] Glucose Lvl 85 70 - 99 mg/dL 10/16/2024 5:06 PM EDT [facility] BUN 15 8 - 23 mg/dL 10/16/2024 5:06 PM EDT [facility] Creatinine 0.66 0.51 - 1.30 mg/dL 10/16/2024 5:06 PM EDT [facility] Albumin 4.4 3.2 - 4.6 gm/dL 10/16/2024 5:06 PM EDT [facility] Total Protein 6.9 6.4 - 8.3 gm/dL 10/16/2024 5:06 PM EDT [facility] Bili Total 0.4 0.2 - 1.3 mg/dL 10/16/2024 5:06 PM EDT [facility] ALT 46(H) <=41 U/L 10/16/2024 5:06 PM EDT [facility] AST 42(H) <=40 U/L 10/16/2024 5:06 PM EDT [facility] Alk Phos 124(H) 36 - 123 U/L 10/16/2024 5:06 PM EDT [facility] eGFR (CKD-EPIcr 2020) 96 >=60 mL/min/1.7 3 m2 10/16/2024 5:06 PM EDT [facility], [facility] Comment:Estimated GFR was ca lculated using the CKD-EPIcr (2020) equation refit without race. The equation is recommended by the National Kidney Foundation - [place] [employer] of Nephrology Task Force. Blood VENOUS BLOOD / Unknown Venipuncture / Unknown 10/16/2024 7:53 AM EDT 10/16/2024 7:53 AM EDT us Jonathan Koch MD CHEMISTRY ORDERABLES Final R esult [facility], [facility] [address] [facility] , [place] [address] from Last 3 Months Insurance [facility] MEDICARE ADVANTAGE HMO-POS Member Subscriber Plan / Payer (Ef fective 2024-Present) Name:Savanah Amaya Relation to Subscriber:Self Name:Savanah Amaya Payer ID:[id number] (NAIC) Group ID:Not on file Type:Not on file Address: [address] [place] [id number] [facility] MEDICARE ADVANTAGE HMO-POS Advance Directives For more information, please contact: [phone] * Full Code (Latest Code Status on File) Date Activated Date Inactivated Comments 10/07/2018 1:31 PM 10/12/2018 3:49 PM Care Teams Information Writer Relationship Specialty Start Date End Date Tito Salgado MD [address] [facility] [address] [place] [address] PCP - General Family Medicine 10/18/18 Jonathan Koch MD [address] [place] [address] [place] [address] Internal Medicine-Cardiovascular Disease 10/18/18
--- NOTE | 2024-12-24 08:00 | US_ITS ---
FINAL REPORT TECHNIQUE: Real-time grayscale and color ultrasound of the thyroid was performed. CLINICAL HISTORY: thyromegaly vs nodule on right COMPARISON: None FINDINGS: The thyroid gland measures 34 x 11 x 13 mm on the right and 30 x 9 x 13 mm on the left. The isthmus measures 3 mm. The thyroid gland is diffusely atrophic. The parenchyma is homogeneous.. Nodules: Dominant 8 mm isoechoic TR 3 nodule on the right. No lesions identified on the left. IMPRESSION: Dominant lesion on the right. Recommend 12-month follow-up per TI-RADS criteria. Atrophic thyroid. Reviewed, Interpreted and Dictated by Carina Smith MD Transcribed by Myesha Rivas Authenticated and . [facility]
== END 2024-12-24 23:59 | disposition home or self-care (01) ==
PROVIDERS: PCP Nurse Practitioner; Visit Provider Nurse Practitioner
DX: E01.0 Iodine-deficiency related diffuse (endemic) goiter (principal); R93.89 Abnormal findings on diagnostic imaging of other specified body structures
CPT/HCPCS: 76536